=== PATIENT | male | born 1945 | race Caucasian/White ===

== ENCOUNTER → 2017-08-07 12:14 | Outpatient (CLI) | payer OTHER, SELFPAY ==
--- NOTE | 2017-08-07 | DI.MRI.S_ITS ---
PROCEDURE: MR KNEE RT WO CON INDICATIONS: PRIMARY OSTEOARTHRITIS OF RIGHT KNEE TECHNIQUE: Noncontrast sagittal PD fast spin echo and T2 fast spin echo with fat saturation, sagittal 3-D FLASH with fat saturation; coronal T1 spin echo and PD fast spin echo with fat saturation, and axial PD fast spin echo with fat saturation through the knee. COMPARISON: [facility], CR, XR KNEE ARTHRITIC SERIES RT, 07/25/2017, 14:18. FINDINGS: Image quality: Excellent. Menisci: There is medial extrusion of the medial meniscus. There is truncation of the free edge of the medial meniscal body, possibly indicating post-meniscectomy sequelae versus radial tearing. Amorphous high signal intensity within the medial meniscal body is present, demonstrating superior and inferior articular surface extension, indicating degenerative tearing. Degenerative fraying of the free edge of the anterior and posterior horns medial meniscus is present. Lateral meniscus demonstrates amorphous high signal intensity within the posterior horn without articular surface extension, consistent with mucoid degeneration. Cruciate ligaments: The anterior and posterior cruciate ligaments appear intact. Medial structures: The medial collateral ligament demonstrates mild T2 signal elevation at its femoral insertion site. There is a small amount of fluid deep to the medial collateral ligament. The posterior oblique ligament, semimembranosus tendon insertions, oblique popliteal ligament, and meniscocapsular junction appear intact. Visualized portions of the pes anserinus tendons appear normal. No abnormal bursal fluid. Lateral structures: The lateral collateral ligament, long and short heads of the biceps femoris tendon appear intact. The popliteus tendon appears normal; the popliteofibular ligament appears intact. The posterosuperior and anteroinferior popliteomeniscal fascicles appear intact. The arcuate and fabellofibular ligaments appear intact, on either side of the lateral inferior geniculate artery. Iliotibial band appears normal. Anterior structures: The quadriceps and patellar tendons appear intact. Patellar alignment is normal. No femoral trochlear dysplasia or ventral trochlear prominence. No edema in the infrapatellar fat pad. Bones and cartilage: No bone marrow contusions or fractures. There is severe tricompartmental periarticular osteophyte formation. Mild ill-defined degenerative marrow edema within the weightbearing aspects of the medial femoral condyle and medial tibial plateau is present. Severe diffuse articular cartilage loss overlies the weightbearing aspects of the medial femoral condyle and medial tibial plateau. Moderate to high-grade articular cartilage loss overlies the lateral patellar facet and lateral femoral stroke with Joint space: There is a small knee joint effusion and a trace Brown's cyst. Normal appearing synovial plicae are incidentally noted. IMPRESSION: 1. Medial meniscal tearing. Possible post-meniscectomy sequelae involving the medial meniscus. 2. Mucoid degeneration of the lateral meniscus without tear. 3. Severe tricompartmental osteoarthritis with associated articular cartilage loss in the medial and patellofemoral compartments. 4. Small knee joint effusion and trace Brown's cyst. 5. Partial-thickness medial collateral ligament tear. Medial collateral ligament bursitis. Dictated by: Fuad Stein M.D. on 08/07/2017 at 15:26 Approved by: Fuad Stein M.D. on 08/07/2017 at 15:31
== END ==
PROVIDERS: PCP Internal Medicine; Visit Provider Orthopaedic Surgery
DX: M17.11 Unilateral primary osteoarthritis, right knee (principal); S83.241A Other tear of medial meniscus, current injury, right knee, initial encounter; S83.411A Sprain of medial collateral ligament of right knee, initial encounter
CPT/HCPCS: 73721; J0690

== ENCOUNTER 2017-09-04 07:21 | Inpatient (IN) | payer OTHER, SELFPAY ==
[2017-08-21 13:55] VITALS: BMI 35.7
[2017-09-04] VITALS (12 sets, daily range): BP systolic 115–168; BP diastolic 73–97; PULSE 48–71; RESP 12–24; TEMP 35.9–36.7; O2SAT 93–98; BMI 35.7
--- NOTE | 2017-09-04 | DI.RAD.S_ITS ---
PROCEDURE: XR KNEE RT 1TO2V INDICATIONS: TOTAL RIGHT KNEE TECHNIQUE: 2 view(s) of the knee acquired. COMPARISON: [facility], MR, MR KNEE RT WO CON, 08/07/2017, 12:29. [facility], CR, XR KNEE ARTHRITIC SERIES RT, 07/25/2017, 14:18. FINDINGS: Bones: Patient is status post knee joint arthroplasty. Hardware components are in expected positions. Visualized bony structures are intact. Soft tissues: Overlying postoperative changes are noted. IMPRESSION: Right knee arthroplasty with prosthesis in anatomic alignment. Dictated by: Sandy Gonzalez M.D. on 09/04/2017 at 13:07 Approved by: Sandy Gonzalez M.D. on 09/04/2017 at 13:08
[2017-09-04] MEDS: LACTATED RINGERS 1,000 ML 42 ML IV (08:30)
[2017-09-04] MEDS: ACETAMINOPHEN 325 MG TABLET 975 MG PO (08:32)
[2017-09-04] MEDS: CELECOXIB 200 MG CAPSULE PO (08:32)
[2017-09-04] MEDS: GABAPENTIN 600 MG TABLET PO (08:33)
[2017-09-04] MEDS: CEFAZOLIN 2 GM/100 ML FROZ.PIGGY IV (10:25)
--- NOTE | 2017-09-04 11:11 | SUR.OPER ---
Supine on padded OR bed. Pillow under head, arms secured on padded armboards <90 degree abduction. Safety belt across torso. Non-operative leg secured with tape over blanket over lower leg. Operative leg secured in DeMayo/Raymundo positioner. Foam padded brace at thigh of operative leg.
[2017-09-04] MEDS: BUPIVACAINE 0.5% (PF) 10 ML, TRANEXAMIC ACID 1,000 MG, SODIUM CHLORIDE 0.9% 20 ML INJ (11:23)
[2017-09-04] MEDS: POVIDONE-IODINE 15 ML, SODIUM CHLORIDE 0.9% 250 ML TOP (11:23)
[2017-09-04] MEDS: LIDOCAINE 1% W/EPI INJ 20 ML INJ (11:25)
[2017-09-04] MEDS: BUPIVACAINE LIPOSOME 266 MG/20 ML VIAL INJ (11:25)
[2017-09-04] MEDS: TRANEXAMIC ACID 1,000 MG VIAL 1000 MG INJ (11:25)
--- NOTE | 2017-09-04 12:05 | PM.PROC.1 ---
Procedures Date/Time Date of procedure: 09/04/17 Time of procedure: 10:10 General Procedure description: Ultrasound guided adductor canal nerve block for post op pain control after Right TKA by Dr. Wills. Risk and benefits of procedure discussed with patient. ASA monitoring applied to patient. 02 given via nasal cannula. 1 mg Versed and 50 mcg fentanyl given for procedural sedation. Skin site was prepped with chlorhexidine and allowed to fully dry. Sterile gloves, mask, hat and probe cover were used to maintain sterility. 2% lidocaine and 30ga needle was used to make a small skin wheal at needle insertion site. Under ultrasound guidance, a 21ga 100mm Pajunk needle was directed into the adductor canal near femoral artery and saphenous nerve at the level of mid thigh. Patient reported no parasthesias. After negative aspiration, 20 mL 0.5% ropivicaine and 10mg dexamethasone were injected around saphenous nerve. Patient tolerated procedure well.
--- NOTE | 2017-09-04 12:27 | SUR.PREOP ---
RLE nerve block, began at [address] Ennis, ended at 1019. Patient on O2 at 2LNP throughout with continuous VS and campus monitor. Tolerated well, awake throughout, comfortable, responded appropriately and readily. RN at bedside until the patient went to surgery. See VS strip on paper.
--- NOTE | 2017-09-04 12:36 | PM.PREOP ---
Pre-operative Note Interval Note Pre-op Check: History & Physical Reviewed by Physician and Exam Performed
--- NOTE | 2017-09-04 12:37 | PM.OP.1 ---
Operative Date/Time/Diagnoses Date of procedure: 09/04/17 Time of procedure: 12:37 Pre-op diagnosis: Right knee osteoarthritis Post-op diagnosis: same Procedure & Clinicians Procedure: Right total knee arthroplasty Same procedure as scheduled: Yes Indications: The patient presents today for total knee arthroplasty after failure of conservative treatment. The nature of the procedure including the risks and benefits, alternatives, postoperative course and expected outcome were discussed and all questions answered. Consent was obtained. Operative site confirmed and marked. Surgeon: Brandon Wills Service Desk Associate: Arnaud Jung Anesthesia Type: General, Spinal, Peripheral nerve block and Local Operative Notes Findings: Severe osteoarthritis with fixed varus alignment and 15 degree flexion contracture. Closure Type: primary Specimen(s): none sent Implants & Drains: [employer] BCS: 7 femoral component, 7 tibial component, 9 mm BCS polyethylene tray and 35 x 9 mm round patella Applied: implant(s) Estimated Blood Loss (mL): 100 Blood products transfused: none Tourniquet time (min): 22 Procedure in detail: The patient was taken to the operative suite and placed under spinal and general anesthesia with an adductor nerve block. The patient was given prophylactic antibiotics prior to surgery. The patient was also given tranexamic acid, 1 g, just prior to surgery for postoperative hemostasis. [The lateral knee was prepped and the joint injected with 20 mL of 1% Lidocaine with epinephrine. ] The knee was then prepped and draped in usual sterile fashion. The leg was exsanguinated with an Esmarch dressing and the tourniquet raised to [250] torr. A 15 cm anterior incision was made. Next a medial trivector arthrotomy was made. The extensor mechanism was marked to ensure accurate repair. Initial exposing dissection was carried out medially and laterally. The knee was then extended and the patellar thickness was measured and a cut made removing approximately [9] mm of bone[ with a goal of restoring normal patellar thickness]. The patella was then sized and drilled. Some excess lateral bone was excised and the patellofemoral ligament released. The tourniquet was then released. The knee was then flexed and the [employer] femoral guide was placed. The anterior pins were placed and the distal rotation holes drilled. The distal cutting guide was placed and the templated distal femoral cut was made. The regular cutting guide was then placed and a +2 femoral cut made given his significant preoperative contracture. The 7 cutting block was then placed and the anterior, posterior and chamfer cuts made. The knee was template id for 6 but was measured larger. The [employer] tibial guide was placed and the alignment checked along the axis of the proximal tibial with a robin. The proximal tibial cut was then made with an oscillating saw. All meniscus and bony debris was then removed. Flexion extension gaps were checked. [No specific balancing was required other than routine exposure and removal of osteophytes]. The soft tissues were then injected with a combination of [20 mL of half percent Marcaine with epinephrine and 20 mL of Exparel]. The trial components were then placed. The knee went into full extension and flexion beyond 120?. There was [excellent] medial- lateral balance throughout motion. Patellar tracking was [excellent]. The trial components were removed and size is confirmed for the final implants. The knee was then exsanguinated with an Esmarch dressing and the tourniquet reapplied for cementing. The knee was cleansed with Pulsavac irrigation and dried. The final components were cemented in with high viscosity vacuum mixed bone cement with antibiotics. The knee was held in extension and the patellar clamp until the cement had adequately cured. The knee was then irrigated with dilute Betadine solution. The extensor mechanism was closed with 5 interrupted #1 Vicryl sutures in 90 degrees of flexion. [The joint was then injected with a combination of 1 g of tranexamic acid and 20 mL of quarter percent Marcaine with epinephrine.] The subcutaneous tissue was closed with 2-0 Vicryl. The skin was closed with [bruno and surgical adhesive]. [ An Aquacell] dressing and Owen wrap were then applied. Complications: none Condition: stable Disposition: PACU Plan for aftercare: [facility] postoperative protocol. Probable discharge to home today. Aspirin for DVT prophylaxis.
--- NOTE | 2017-09-04 12:41 | P.OP_ITS ---
Operative Date/Time/Diagnoses Date of procedure: 09/04/17 Time of procedure: 12:37 Pre-op diagnosis: Right knee osteoarthritis Post-op diagnosis: same Procedure & Clinicians Procedure: Right total knee arthroplasty Same procedure as scheduled: Yes Indications: The patient presents today for total knee arthroplasty after failure of conservative treatment. The nature of the procedure including the risks and benefits, alternatives, postoperative course and expected outcome were discussed and all questions answered. Consent was obtained. Operative site confirmed and marked. Surgeon: Brandon Wills Facility Designer: Arnaud Jung Anesthesia Type: General, Spinal, Peripheral nerve block and Local Operative Notes Findings: Severe osteoarthritis with fixed varus alignment and 15 degree flexion contracture. Closure Type: primary Specimen(s): none sent Implants & Drains: Garcia [employer]ilson BCS: 7 femoral component, 7 tibial component, 9 mm BCS polyethylene tray and 35 x 9 mm round patella Applied: implant(s) Estimated Blood Loss (mL): 100 Blood products transfused: none Tourniquet time (min): 22 Procedure in detail: The patient was taken to the operative suite and placed under spinal and general anesthesia with an adductor nerve block. The patient was given prophylactic antibiotics prior to surgery. The patient was also given tranexamic acid, 1 g, just prior to surgery for postoperative hemostasis. [The lateral knee was prepped and the joint injected with 20 mL of 1% Lidocaine with epinephrine. ] The knee was then prepped and draped in usual sterile fashion. The leg was exsanguinated with an Esmarch dressing and the tourniquet raised to [250] torr. A 15 cm anterior incision was made. Next a medial trivector arthrotomy was made. The extensor mechanism was marked to ensure accurate repair. Initial exposing dissection was carried out medially and laterally. The knee was then extended and the patellar thickness was measured and a cut made removing approximately [9] mm of bone[ with a goal of restoring normal patellar thickness ]. The patella was then sized and drilled. Some excess lateral bone was excised and the patellofemoral ligament released. The tourniquet was then released. The knee was then flexed and the [employer] femoral guide was placed. The anterior pins were placed and the distal rotation holes drilled. The distal cutting guide was placed and the templated distal femoral cut was made. The regular cutting guide was then placed and a +2 femoral cut made given his significant preoperative contracture. The 7 cutting block was then placed and the anterior, posterior and chamfer cuts made. The knee was template id for 6 but was measured larger. The [employer] tibial guide was placed and the alignment checked along the axis of the proximal tibial with a robin. The proximal tibial cut was then made with an oscillating saw. All meniscus and bony debris was then removed. Flexion extension gaps were checked. [No specific balancing was required other than routine exposure and removal of osteophytes]. The soft tissues were then injected with a combination of [20 mL of half percent Marcaine with epinephrine and 20 mL of Exparel]. The trial components were then placed. The knee went into full extension and flexion beyond 120?. There was [excellent] medial- lateral balance throughout motion. Patellar tracking was [excellent]. The trial components were removed and size is confirmed for the final implants. The knee was then exsanguinated with an Esmarch dressing and the tourniquet reapplied for cementing. The knee was cleansed with Pulsavac irrigation and dried. The final components were cemented in with high viscosity vacuum mixed bone cement with antibiotics. The knee was held in extension and the patellar clamp until the cement had adequately cured. The knee was then irrigated with dilute Betadine solution. The extensor mechanism was closed with 5 interrupted #1 Vicryl sutures in 90 degrees of flexion. [The joint was then injected with a combination of 1 g of tranexamic acid and 20 mL of quarter percent Marcaine with epinephrine.] The subcutaneous tissue was closed with 2-0 Vicryl. The skin was closed with [ bruno and surgical adhesive]. [ An Aquacell] dressing and Owen wrap were then applied. Complications: none Condition: stable Disposition: PACU Plan for aftercare: [facility] postoperative protocol. Probable discharge to home today. Aspirin for DVT prophylaxis.
--- NOTE | 2017-09-04 13:49 | SUR.PREOP ---
PT TO ROOM, HAND OFF OF CARE TO RN MARY ELLEN, KNEE DRESSING REMAINS DRY AND INTACT, + PEDAL PULSES PALPATED, PT ABLE TO WIGGLE TOES, DENIES ANY PAIN OR DISCOMFORT, PT TOLERATING PO FLUIDS- COFFEE AND NAVNEET AMOR, FAMILY NOTIFIED OF ROOM NUMBER.
--- NOTE | 2017-09-04 14:57 | PT.IIE ---
Current Diagnoses Other spondylosis with radiculopathy, lumbar region (09/04/17) Intervertebral disc disorders with radiculopathy, lumbar region (09/04/17) Other specified postprocedural states (09/04/17) Surgery Performed Operation Date: 09/04/17 09:45 Actual Procedures p Total Knee Arthroplasty(Right) - Brandon Wills MD Surgical History (Last Updated 08/21/17 @ 14:10 by Aisha Zapata RN) History of colonoscopy (Acute) History of lumbar fusion (Acute) Hx of arthroscopy of right knee (Acute) Hx of laminectomy (Acute) Hx of tonsillectomy (Acute) Medical History (Last Updated 08/21/17 @ 14:10 by Aisah Zapata RN) Diverticulitis (Acute) GERD (gastroesophageal reflux disease) (Acute) Numbness and tingling of both legs (Acute) Pneumonia (Acute) Prostate cancer (Acute) Physical Therapy Inpatient Evaluation/Re-Eval M1 PT/OT-IP Prior Functional Status Start: 09/04/17 17:34 Freq: NEEDED Status: Active Protocol: Document 09/04/17 14:57 AB (Rec: 09/04/17 17:42 AB [id number]) Medical Review Prior Functional Status Medical History Reviewed Yes Communication able to make needs known Mobility and Gait stated that he is independent with all mobilities and ambulation without AD Social History Household Members significant other children Living Arrangements House Number of Floors (Floors) One Floor Number of Stairs To Enter/Railing? 1 step to enter Home Environment Standard Height Toilet Walk in Shower Home Equipment Front Wheel Walker Grab Bars In Shower Employment Status Retired Additional Social History Comment pt will have significant other assist him but when she is not home, stated that his son will assist him. M2 PT-IP Current Condition Start: 09/04/17 17:34 Freq: NEEDED Status: Active Protocol: Document 09/04/17 14:57 AB (Rec: 09/04/17 17:42 AB [id number]) Physical Therapy Current Condition Current Condition Evaluation Date 09/04/17 Treatment Diagnosis s/p R TKA Onset Date 09/04/17 Weight Bearing Status Weight Bearing Status Weight Bear as Tolerated M3 PT-IP Subjective Start: 09/04/17 17:34 Freq: NEEDED Status: Active Protocol: Document 09/04/17 14:57 AB (Rec: 09/04/17 17:42 AB [id number]) Subjective Physical Therapy Visit Type Type Initial Evaluation Visit Start Time 14:57 Visit Stop Time 15:57 Total Visit Minutes 60 Number of [employer] Visits 0 Physical Therapy Visit Comments Patient Comments stated that he is going home after PT Therapy Pain Assessment Pain When Pain Assessed At Rest Pain Present Pain Present Pain Reported Location Right Knee Intensity 2 Scale Used Numeric (1 - 10) Pain Management Techniques Apply Cold Re-positioning M4 PT-IP Mobility and Gait Start: 09/04/17 17:34 Freq: NEEDED Status: Active Protocol: Document 09/04/17 14:57 AB (Rec: 09/04/17 17:42 AB [id number]) PT-Bed Mobility Assessment Supine to Sit Supine to Sit Standby Assistance PT-Transfer Assessment Sit to and From Stand Sit to and from Stand Standby Assistance Equipment Transfer Assistive Device Gait Belt Front Wheeled Walker Transfers Transfer Destination Chair Transfer Technique Stand Step Pivot Transfer Ability Level of Assist Standby Assistance Gait Assessment Gait Gait Assistance Required: Standby Assistance Contact Guard Assist Distance (Feet) (feet) 100 Able to Maintain Weight Bearing Status Yes During Gait Assistive Devices Assistive Device Gait Belt Front Wheeled Walker Orthotic/Prosthetic Devices or Brace: No Gait Deviations General Gait Pattern Antalgic Decreased Stride Length Decreased Feet Clearance Factors Limiting Gait Function Factors Limiting Gait Function Decreased Activity Tolerance Decreased Strength Difficulty Following Directions Limited Range of Motion Pain Poor Balance Stair Climbing Assessment Evaluation Level of Assist On Stairs Contact Guard Assistance Devices Stair Climbing Assistive Devices Front Wheel Walker Technique/Endurance Stair Climbing Direction Ascend and Descend Stair Climbing Technique Step to Step Number of Steps Climbed 1 Query Text: Stair Climbing Set # Repetitions (reps) 4 Comments Stair Climbing Comments caregiver traiing conducted with spouse on how to assist pt with ambulation and stair climbing. spouse was able to safely assist pt. PT-Balance Assessment Sitting Balance and Reactions Static Sitting Balance Ability Good Dynamic Sitting Balance Ability Good Standing Balance and Reactions Static Standing Balance Ability Fair Dynamic Standing Balance Ability Fair Device Used FWW M5 PT-IP Objective Assessments Start: 09/04/17 17:34 Freq: NEEDED Status: Active Protocol: Document 09/04/17 14:57 AB (Rec: 09/04/17 17:42 AB [id number]) Orientation Orientation/Cognition Level of Alertness Alert Orientation Name Age Birthday Month Date Year Day of Week Place Situation Safety Awareness Understands Safety Issues Gross Range of Motion Lower Extremity ROM Assessment Right Impaired Strength Lower Extremity Strength Assessment Right Impaired Hip 4/5 Knee 4-/5 Ankle 2-/5 Comments Strength Comments pt has R foot drop; pt stated that he had back problems from before and that it affected his foot. Sensation Assessment Sensation Sensation Description Numbness Comments Sensation Comments has decrease R foot sensation M6 PT-IP Treatment Start: 09/04/17 17:34 Freq: NEEDED Status: Active Protocol: Document 09/04/17 14:57 AB (Rec: 09/04/17 17:42 AB [id number]) Physical Therapy Treatment Education Education Provided Precautions Weight Bearing Status Post-Op Packet Safety M7 PT-IP Assessment and Plan Start: 09/04/17 17:34 Freq: NEEDED Status: Active Protocol: Document 09/04/17 14:57 AB (Rec: 09/04/17 17:42 AB [id number]) PT Summary Assessment and Plan Potential Rehabilitation Potential Good Status of Condition at Evaluation Stable Summary Impairments Pain ROM Strength Balance Coordination Sensation Tone Cognition Bed Mobility Transfers Gait Activity Tolerance Assessment Summary pt requiring SBA to CGA with mobility and will have family to assist him at home. pt is also set up for outpt PT. pt plans to go home today. Goals Bed Mobility Goal Independent Transfer Goal Independent Gait Goal Independent Gait Distance 150 Other Goals up/down 1 step using FWW SBA Days to Meet Goals 2 Frequency of Treatment Frequency Of Treatment Twice a Day Treatment Plan Physical Therapy Treatment Plan Bed Mobility Training Transfer Training Gait Training Therapeutic Exercise Balance Retraining Post Op Education Discharge Planning Hot or Cold Pack Neuromuscular Re-ed Coordination Retraining Manual Therapy Recommendations To Nursing Amount of Assist Needed Standby Assistance Discharge Recommendations PT Discharge Recommendations Home with Assistance Outpatient PT
[2017-09-04] MEDS: OXYCODONE IR 10 MG TABLET PO (16:07)
== END 2017-09-04 16:15 | disposition home or self-care (01) | DRG 470 ==
PROVIDERS: Admitting Provider Orthopaedic Surgery; PCP Internal Medicine; Visit Provider Orthopaedic Surgery
PROC: 0SRC0JZ Replacement of Right Knee Joint with Synthetic Substitute, Open Approach (ICD-10-PCS; CPT 27447; principal; 2017-09-04 09:45)
DX: M17.11 Unilateral primary osteoarthritis, right knee (principal); I10 Essential (primary) hypertension; I50.9 Heart failure, unspecified; Z87.891 Personal history of nicotine dependence
CPT/HCPCS: 64450; 73560; 97161; 97530; C1776; C9290; J0690; J1100; J2250; J2405; J2704; J2795; J3010